=== PATIENT | male | born 1965 | race American Indian/Alaskan Native ===

== ENCOUNTER 2021-04-08 06:41 | Emergency (ER) | payer BC, SELFPAY ==
--- NOTE | ~2021-04-08 | US_ITS ---
EXAMINATION: US SCROTUM CLINICAL INFORMATION: Right-sided swelling.. COMPARISON: Previous CT of the abdomen and pelvis from earlier the same day TECHNIQUE: A sonogram of the scrotum was performed assessing hatfield-scale appearance and color Doppler flow. Spectral Doppler analysis of the arterial and venous flow were performed in the testes bilaterally. FINDINGS: RIGHT: Right testicle measures 4.6 x 2.4 x 3.5 cm, volume 20 mL. No focal testicular parenchymal lesions are visualized. Spectral Doppler analysis of the arterial and venous flow is normal in the right testis. Right epididymal head is enlarged. There is a complex multiloculated cyst in the superior right scrotum probably question representing an exophytic epididymal head cyst. This measures 4.3 x 3.4 x 5.5 cm. No right hydrocele or varicocele is seen. Right epididymal Doppler flow is normal. LEFT: Left testicle measures 5.2 x 2.3 x 3.1 cm, volume 19 mL. There is a 4 x 3 x 3 mm cyst in the superior left testicle. No other focal testicular parenchymal lesions are visualized. Spectral Doppler analysis of the arterial and venous flow is normal in the left testis. Left epididymal head is normal in size. There is a 3 mm epididymal head cyst. No left hydrocele or varicocele is seen. Left epididymal Doppler flow is normal. US/US scrotum IMPRESSION: Large multiloculated cyst in the superior right scrotum, question representing an exophytic right epididymal head cyst. Small simple cyst in the left testicle and small left epididymal head cyst.
--- NOTE | ~2021-04-08 | CT_ITS ---
EXAMINATION: CT ABDOMEN AND PELVIS WITHOUT CONTRAST CLINICAL INFORMATION: Left flank pain COMPARISON: None TECHNIQUE: Multidetector volumetric imaging was performed from the superior aspect of the liver through the pubic symphysis. Sagittal and coronal reformatted images were obtained on the technologist's workstation. This CT examination was performed using dose optimization techniques as appropriate, variously including the following: *Automated exposure control *Adjustment of mA and/or kV according to patient size (this includes techniques or standardized protocols for targeted exams where dose is matched to indication/reason for exam; i.e. extremities or head) *Use of iterative reconstruction technique DLP: 714 mGy-cm FINDINGS: LUNG BASES: There is a 5 mm calcified right lower lobe nodule axial image 9 series 3. The lung bases are otherwise clear. LIVER, GALLBLADDER, AND BILIARY TREE: There are multiple low-attenuation liver lesions suggestive of cysts. The largest measures 2.2 cm in the right lobe of the liver near the caudate lobe. There are gallstones. Gallbladder is otherwise unremarkable. Attenuation There is no biliary duct dilatation. PANCREAS: Unremarkable. SPLEEN: Unremarkable. ADRENAL GLANDS: Unremarkable. KIDNEYS AND URETERS: There is a 2 x 4 mm left UPJ or proximal ureteral stone. There is mild left hydronephrosis. There is stranding of the perinephric and perirenal ureteral fat seen in the hilum of the kidney and adjacent to the left proximal ureter. No renal stone is seen. The right kidney is unremarkable. BLADDER: Not optimally distended. GASTROINTESTINAL TRACT: There is mild diverticulosis of the colon. Small and large bowel is otherwise unremarkable. The appendix is unremarkable. The stomach is unremarkable. ABDOMINAL WALL: There is a left inguinal hernia containing fat. LYMPH NODES: Normal. VASCULAR: Unremarkable. PELVIC VISCERA: Unremarkable. OSSEOUS STRUCTURES: Unremarkable. CT/CT abdomen pelvis wo con IMPRESSION: Mild left hydronephrosis from a 2 x 4 mm left UPJ or proximal ureteral stone. There is stranding of the surrounding perinephric and periureteral fat questionable for backflow of urine secondary to obstruction. Differential would include infection. Multiple liver cysts. Mild diverticulosis of the colon. Left inguinal hernia containing fat. Small calcified right lower lobe nodule probably representing a calcified granuloma.
[2021-04-08 06:49] VITALS: BP 129/93; PULSE 68; RESP 15; TEMP 36.4; O2SAT 98; BMI 32.0
--- NOTE | 2021-04-08 07:06 | ED.BACK ---
HPI - Back Pain/Injury General Chief Complaint: General Medical Stated Complaint: back pain Time Seen by Provider: 04/08/21 07:06 Source: patient Mode of arrival: ambulatory Limitations: no limitations History of Present Illness HPI Narrative: 56 yo male L sided flank pain and n/v abrupt onset this AM, no prior history MD elicited complaint: other (L flank pain) Onset (ago): hour(s) (few) Timing: constant and progressively worsening Severity: severe Similar Symptoms Previously: No Quality: sharp Location: left flank Radiation: abdomen Exacerbating factors: none Relieving factors: none Associated symptoms: abdominal pain and other (nausea vomiting dark urine) Work related injury: No Related Data Previous Rx's Medication Instructions Recorded hydrocodone-acetaminophen 1 tab PO Q6H PRN #15 tab 04/08/21 ondansetron 4 mg PO Q8H PRN #20 tab 04/08/21 prednisone 40 mg PO DAILY 5 Days #10 tab 04/08/21 tamsulosin 0.4 mg PO DAILY 5 Days #5 cap 04/08/21 Allergies Allergy/AdvReac Type Severity Reaction Status Date / Time No Known Allergies Allergy Verified 04/08/21 06:54 Review of Systems Review of Systems: Constitutional : No Weight loss, No Fever, No Chills ENT/Mouth : No sore throat, No Rhinorrhea Eyes: No Swelling, No Redness Cardiovascular : No Chest Pain, No SOB, NoEdema Respiratory : No Cough, No Sputum, No Wheezing Gastrointestinal : Positive Nausea, Positive Vomiting, no Diarrhea, positive abdominal Pain, No Hematochezia, No Melena Genitourinary : No Dysuria, No Urinary Frequency, pos Hematuria, No Urgency , pos flank pain Musculoskeletal : No joint pain, No Myalgias, No Joint Swelling Skin : No Skin Lesions, No rash Neuro : No Weakness, No Numbness, No Dizziness, No Headache Psych : No Anxiety/Panic, No Depression Heme/Lymph: No Bruising, No Lymphadenopathy Endocrine : No Polyuria, No Polydipsia All other systems reviewed and are negative. [facility] Past Medical History Attestation statement: The following information was validated with the patient. Medical History Healthy adult Social History Social History (Updated 04/08/21 @ 07:25 by Marialuisa Medina DO) Patient Tobacco Use Status: Current everyday Tobacco user Use of substances other than those prescribed or required for medical reasons: No Advance Directives: No Advance Directives Information Provided: No Physical Exam Vital Signs: Vital Signs: Last Vital Signs Temp 98 F 04/08/21 07:14 Pulse 72 04/08/21 10:44 Resp 16 04/08/21 10:44 BP 132/76 04/08/21 10:44 Pulse Ox 96 04/08/21 10:44 Body Mass Index 32.5 Appearance: Alert. Oriented X3. anxious in pain mild acute distress. Eyes: Pupils equal, round and reactive to light. ENT: Pharynx normal. Neck: Normal inspection. Neck supple. CVS: Normal heart rate and rhythm. Pulses normal. Respiratory: No respiratory distress. Breath sounds normal. Abdomen: Soft and mild L abd ttp no rebound or guarding : R testicle slightly larger than left, no hard mass felt, no ttp, normal color Back: nontender Skin: Skin warm and dry. Normal skin color. Normal skin turgor. Extremities: No lower extremity edema. No calf ttp Neuro: Oriented X 3. No motor deficit. No sensory deficit. Course Course Course Narrative: pain well controlled, labs stable, UA negative for infection, can be managed as outpatient with urology follow up MDM - Back Pain/Injury MDM Narrative Medical decision making narrative: 56 yo male here with L flank pain abrupt onset, dark urine, n/v concerning for renal colic given presentation at this time will need labs, UA, CT scan for renal colic, IV toradol/dilaudid for pain, dispo per results and findings. Differential Diagnosis Differential diagnosis: Likely strain of lumbar region and renal colic Lab Data Result diagrams: 04/08/21 07:32 04/08/21 08:02 Labs: Lab Results 04/08/21 04/08/21 04/08/21 Range/Units 07:32 07:32 08:02 WBC 12.0 H (4.8-10.8) X10*3/uL RBC 5.62 (4.60-5.80) X10*6/uL Hgb 17.3 (14.0-18.0) g/dl Hct 52.3 H (42-52) % MCV 93.1 (80-98) fL MCH 30.8 (27.0-33.0) pg MCHC 33.1 (31.0-36.0) g/dl RDW 12.4 (11.0-16.0) % Plt Count 303 (160-400) X10*3/uL MPV 9.4 (9.4-12.4) fL Immature Gran % (Auto) 0.5 H (0.0-0.4) % Neut % (Auto) 79.6 H (45-73) % Lymph % (Auto) 13.2 L (20-40) % [place] % (Auto) 5.5 (2-11) % Eos % (Auto) 0.8 (0-4) % Baso % (Auto) 0.4 (0-2) % Lymph # (Auto) 1.6 (1.2-4.9) X10*3/uL [place] # (Auto) 0.7 (0.1-1.2) X10*3/uL Eos # (Auto) 0.1 (0.0-0.4) X10*3/uL Baso # (Auto) 0.1 (0.0-0.2) X10*3/uL Abs Immat Gran (auto) 0.06 H (0.00-0.03) X10*3/uL Absolute Neuts (auto) 9.5 H (2.0-8.3) X10*3/uL Absolute Nucleated RBC 0.000 (0.0-0.012) X10*3/uL Nucleated RBC % (auto) 0.0 (0.0-0.2) /100WBC Sodium 141 (135-145) mmol/L Potassium 3.9 (3.3-5.1) mmol/L Chloride 109 H (96-108) mmol/L Carbon Dioxide 26 (22-29) mmol/L Anion Gap 10 L (12-20) BUN 14 (9-16) mg/dL Creatinine 0.89 (0.5-1.4) mg/dL Estim Creat Clear Calc 112.7 Estimated GFR > 60 Random Glucose 105 (60-115) mg/dL Calcium 8.5 (8.4-10.2) mg/dL Magnesium 2.0 (1.6-2.6) mg/dL Total Bilirubin 0.5 (0.0-1.0) mg/dL Direct Bilirubin 0.2 (0.0-0.5) mg/dL AST 10 (5-37) U/L ALT 11 (0-40) U/L Alkaline Phosphatase 60 (39-117) U/L Total Protein 6.1 L (6.5-8.0) g/dL Albumin 3.8 (3.5-5.0) g/dL Lipase 13 (8-78) U/L Urine Color BROWN Urine Appearance CLOUDY Urine pH 6.0 (5.0-8.0) Ur Specific Dickens >= 1.030 H (1.005-1.025) Urine Protein 2+ H (NEG-TRACE) MG/DL Urine Glucose (UA) NEG (NEG) MG/DL Urine Ketones NEG (NEG) MG/DL Urine Blood 3+ H (NEG) Urine Nitrite NEG (NEG) Ur Leukocyte Esterase NEG (NEG) Urine RBC TNTC H (0) /HPF Urine WBC 0 (0-4) /HPF Ur Squamous Epith Cells TRACE /LPF Amorphous Sediment 1+ /LPF Urine Bacteria NONE /LPF Urine Mucus 1+ /LPF Discharge Plan Discharge Clinical Impression: Ureterolithiasis Patient Disposition: Home, Self-Care Instructions: Ureteral Stones (ED) Additional Instructions: return to ED for any worsening symptoms or concerns drink plenty of fluids 60 ounces a day Large multiloculated cyst in the superior right scrotum, question representing an exophytic right epididymal head cyst. Small simple cyst in the left testicle and small left epididymal head cyst. YOU SHOULD FOLLOW UP WITH UROLOGY FOR THIS - DR. RODRIGUEZ Prescriptions: New hydrocodone-acetaminophen 5-325 mg tablet 1 tab PO Q6H PRN (Reason: pain) Qty: 15 RF: 0 prednisone 20 mg tablet 40 mg PO DAILY 5 Days Qty: 10 RF: 0 tamsulosin 0.4 mg capsule 0.4 mg PO DAILY 5 Days Qty: 5 RF: 0 ondansetron 4 mg tablet,disintegrating 4 mg PO Q8H PRN (Reason: nausea and vomiting) Qty: 20 RF: 0 Referrals: Alfredo Rodriguez MD [Physician] - 3 days (if not better call Sunday or come back to the ED) Stand Alone Forms: Work/School Release
[2021-04-08 07:14] VITALS: BP 133/84; PULSE 62; RESP 16; TEMP 36.6; O2SAT 98; BMI 32.5
[2021-04-08] MEDS: ondansetron HCL 4 MG/2 ML VIAL IVPUSH (07:27)
[2021-04-08] MEDS: HYDROmorphone HCl 1 MG/ML SYRINGE IVPUSH (07:27)
[2021-04-08] MEDS: 0.9 % Sodium Chloride 1,000 ML 999 ML IVCONT (07:28)
[2021-04-08] MEDS: Ketorolac Tromethamine 30 MG/ML VIAL IVPUSH (07:28)
[2021-04-08 07:36] VITALS: BP 129/84; PULSE 73; RESP 17; O2SAT 98
[2021-04-08 07:36] LABS: MANUAL DIFF FLAG NO
[2021-04-08 07:37] LABS: Basophils Absolute Auto 0.1 X10*3/uL (0.0-0.2); Basophils Percent Auto 0.4 % (0-2); Eosinophils Absolute Auto 0.1 X10*3/uL (0.0-0.4); Eosinophils Percent Auto 0.8 % (0-4); Hematocrit 52.3 % (42-52); Hemoglobin 17.3 g/dl (14.0-18.0); Imm Gran Abs Auto 0.06 X10*3/uL (0.00-0.03); Imm Gran Pct Auto 0.5 % (0.0-0.4); Lymphocytes Absolute Auto 1.6 X10*3/uL (1.2-4.9); Lymphocytes Percent Auto 13.2 % (20-40); Mean Corpuscular HGB Conc 33.1 g/dl (31.0-36.0); Mean Corpuscular Hemoglobin 30.8 pg (27.0-33.0); Mean Corpuscular Volume 93.1 fL (80-98); Mean Platelet Volume 9.4 fL (9.4-12.4); Monocytes Absolute Auto 0.7 X10*3/uL (0.1-1.2); Monocytes Percent Auto 5.5 % (2-11); Neutrophils Absolute Auto 9.5 X10*3/uL (2.0-8.3); Neutrophils Percent Auto 79.6 % (45-73); Platelet Count 303 X10*3/uL (160-400); Red Blood Count 5.62 X10*6/uL (4.60-5.80); Red Cell Distribution Width 12.4 % (11.0-16.0)
[2021-04-08 07:50] LABS: Glucose Urine UA NEG (NEG); Leukocyte Esterase Urine NEG (NEG); Nitrite Urine NEG (NEG); Specific Gravity - Urine >= 1.030 (1.005-1.025); Urine Blood 3+ (NEG); Urine Ketones NEG (NEG); Urine Protein 2+ MG/DL (NEG-TRACE)
[2021-04-08 08:05] LABS: Appearance Urine CLOUDY; Color Urine BROWN; RBC Urine TNTC /HPF (0); WBC Urine 0 /HPF (0-4)
[2021-04-08 08:06] LABS: Mucus Urine 1+ /LPF; Squamous Epithelial Cell Urine TRACE /LPF
[2021-04-08 08:07] LABS: Amorphous Sediment Urine 1+ /LPF
[2021-04-08 08:33] LABS: Alanine Aminotransferase 11 U/L (0-40); Albumin Level 3.8 g/dL (3.5-5.0); Alkaline Phosphatase 60 U/L (39-117); Anion Gap 10 (12-20); Aspartate Amino Transferase 10 U/L (5-37); Bilirubin Direct 0.2 mg/dL (0.0-0.5); Bilirubin Total 0.5 mg/dL (0.0-1.0); Blood Urea Nitrogen 14 mg/dL (9-16); Calcium 8.5 mg/dL (8.4-10.2); Carbon Dioxide 26 mmol/L (22-29); Chloride 109 mmol/L (96-108); Creatinine Clr Calc Pharmacy 112.7; Estimated Glomerular Filt Rate > 60; Glucose Random 105 mg/dL (60-115); Lipase 13 U/L (8-78); Potassium 3.9 mmol/L (3.3-5.1); Sodium 141 mmol/L (135-145); Total Protein 6.1 g/dL (6.5-8.0)
[2021-04-08] MEDS: predniSONE 20 MG TABLET 60 MG PO (09:00)
[2021-04-08] MEDS: Tamsulosin HCL 0.4 MG CAPSULE PO (09:00)
[2021-04-08 10:44] VITALS: BP 132/76; PULSE 72; RESP 16; O2SAT 96
[2021-04-08] MEDS: oxyCODONE HCl Immed Release 15 MG TABLET PO (11:23)
[2021-04-08 11:29] VITALS: BP 132/71; PULSE 77; RESP 18; O2SAT 98
== END 2021-04-08 11:31 | disposition home or self-care (01) ==
PROVIDERS: Emergency Provider Emergency Medicine
DX: N20.1 Calculus of ureter (principal); N50.3 Cyst of epididymis; L72.9 Follicular cyst of the skin and subcutaneous tissue, unspecified
CPT/HCPCS: 36415; 74176; 76870; 80048; 80076; 81001; 81003; 83690; 83735; 85025; 96361; 96374; 96375; 99284; J1170; J1885; J2405

== ENCOUNTER → 2021-06-23 13:36 | Outpatient (BNVA) | payer BC, SELFPAY | PROVIDERS: Visit Provider Urology ==